=== PATIENT | female | born 2005 | race Caucasian/White ===

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

== ENCOUNTER 2023-01-29 20:57 | Emergency (ER) | payer MEDICAID, SELFPAY ==
[2023-01-29 21:12] VITALS: BP 125/77; PULSE 83; RESP 16; TEMP 36.9; O2SAT 98; BMI 27.4
--- NOTE | 2023-01-29 22:17 | W.ED.FEMALGU ---
HPI - Female Genitourinary General: Chief complaint: Urogenital-Female Stated complaint: abd pain/ 6 weeks Time Seen by Provider: 01/29/23 22:08 History of Present Illness: 17-year-old female comes in with right lower quadrant abdominal cramping. Patient had an ultrasound done at the [facility] facility today that showed a yolk sac in the uterus. Patient came in due to increased pain and discomfort in the lower abdomen. Patient appears nontoxic. 1 para 0. Patient reports no other miscarriages. Review of Systems General: Reports: 10 or more systems reviewed and unremarkable except in HPI and below : Reports: pelvic pain; Denies: vaginal bleeding Physical Exam Const: COMMON NORMALS: alert HENMT: COMMON NORMALS: normocephalic HEAD & SCALP: normocephalic Neck/C-Spine: COMMON NORMALS: full ROM Resp: COMMON NORMALS: normal respiratory effort and clear to auscultation bilaterally AUSCULTATION: clear to auscultation bilaterally Cardio: COMMON NORMALS: regular rate and regular rhythm RATE: regular rate RHYTHM: regular rhythm GI: COMMON NORMALS: non-tender Back/Pelvis: COMMON NORMALS: thoracic and lumbar spine normal to inspection Extremity: COMMON NORMALS: full ROM Neuro: SENSORIUM/ORIENTATION: Yes alert Skin: COMMON NORMALS: turgor normal GENERAL SKIN EXAM: turgor normal Course Vital Signs: Vital signs: Vital Signs Temperature 98.4 F 01/29/23 21:12 Pulse Rate 69 01/29/23 22:43 Respiratory Rate 18 01/29/23 22:43 Blood Pressure 134/79 01/29/23 22:43 Pulse Oximetry 98 01/29/23 22:43 Oxygen Delivery Me thod Room Air 01/29/23 22:43 MDM - Female Medical Decision Making Patient comes in today for complaints of right lower quadrant pain and early . Patient been seen at the [facility] facility today and was noted to have a in utero . Patient denies any nausea vomiting, or bleeding. Patient appears in mild to moderate pain to the right lower quadrant. Differential diagnosis includes but not limited to threatened , ectopic , anxiety about health. Laboratory values were unremarkable. hCG was at 16,000. Urinalysis was normal. Ultrasound noted a gestational sac in the uterus with a pole. A incidental right ovarian cyst was noted. The ovarian cyst may be patient's concern for discomfort. Recommended acetaminophen for pain and follow-up with [facility]. Patient is scheduled to be leaving the area and will seek [facility] in [place] where she is moving. Lab Data 01/29/23 22:49 01/29/23 22:49 Laboratory Results WBC 9.6 10^3/uL (4.5-13.0) 01/29/23 22:49 RBC 4.71 10^6/uL (4.1-5.3) 01/29/23 22:49 Hgb 14.2 g/dL (11.5-15.3) 01/29/23 22:49 Hct 42.0 % (37.0-47.0) 01/29/23 22:49 MCV 89.2 fl (81-99) 01/29/23 22:49 MCH 30.1 pg (28.0-34.0) 01/29/23 22:49 MCHC 33.8 g/dL (30.0-36.0) 01/29/23 22:49 RDW 12.0 % (12.1-15.1) L 01/29/23 22:49 Plt Count 263 10^3/cmm (130-400) 01/29/23 22:49 MPV 9.8 fL (7.4-10.4) 01/29/23 22:49 Neut % (Auto) 65.7 % 01/29/23 22:49 Lymph % (Auto) 28.3 % 01/29/23 22:49 [place] % (Auto) 5.2 % 01/29/23 22:49 Eos % (Auto) 0.3 % 01/29/23 22:49 Baso % (Auto) 0.3 % 01/29/23 22:49 Neut # (Auto) 6.32 10^3/uL (1.8-8.0) 01/29/23 22:49 Lymph # (Auto) 2.7 10^3/uL (1.5-6.5) 01/29/23 22:49 [place] # (Auto) 0.5 10^3/uL (0.2-0.9) 01/29/23 22:49 Eos # (Auto) 0.0 10^3/uL (0.0-0.8) 01/29/23 22:49 Baso # (Auto) 0.0 10^3/uL (0.0-0.1) 01/29/23 22:49 Nucleated RBC % (auto) 0 % 01/29/23 22:49 Nucleated RBCs # 0.0 /100WBC 01/29/23 22:49 Sodium 138 mmol/L (136-145) 01/29/23 22:49 Potassium 3.5 mmol/L (3.5-5.1) 01/29/23 22:49 Chloride 104 mmol/L (98-107) 01/29/23 22:49 Carbon Dioxide 24 mmol/L (22-29) 01/29/23 22:49 Anion Gap 13.5 (5-19) 01/29/23 22:49 BUN 9 mg/dL (6-20) 01/29/23 22:49 Creatinine 0.7 mg/dL (0.5-0.9) 01/29/23 22:49 GFR Calculation 107.8 mL/min (90-130) 01/29/23 22:49 Glucose 89 mg/dL (65-115) 01/29/23 22:49 Calculated Osmolality 284 mOsm/kg (285-295) L 01/29/23 22:49 Calcium 9.3 mg/dL (8.5-10.5) 01/29/23 22:49 Total Bilirubin 0.3 mg/dL (0.15-1.2) 01/29/23 22:49 AST 14 U/L (0-32) 01/29/23 22:49 ALT 12 U/L (0-33) 01/29/23 22:49 Alkaline Phosphatase 74 U/L (35-105) 01/29/23 22:49 Total Protein 7.2 g/dL (6.6-8.7) 01/29/23 22:49 Albumin 4.6 g/dL (3.5-5.2) 01/29/23 22:49 Globulin 2.6 g/dL (1.3-4.6) 01/29/23 22:49 HCG, Qual Positive (Negative) H 01/29/23 22:49 Ser , Semi-Qnt 79272.00 mIU/mL 01/29/23 22:49 Urine Color Straw (Yellow) 01/29/23 22:40 Urine Appearance Clear (CLEAR) 01/29/23 22:40 Urine pH 7 (5-7) 01/29/23 22:40 Ur Specific Central 1.010 (1.005-1.030) 01/29/23 22:40 Urine Protein Neg (Negative) 01/29/23 22:40 Urine Glucose (UA) Norm (Normal) 01/29/23 22:40 Urine Ketones Negative (Negative) 01/29/23 22:40 Urine Blood Neg (Negative) 01/29/23 22:40 Urine Nitrate Negative (Negative) 01/29/23 22:40 Urine Bilirubin Neg (Negative) 01/29/23 22:40 Urine Urobilinogen Norm mg/dL (Negative) 01/29/23 22:40 Ur Leukocyte Esterase Negative (Negative) 01/29/23 22:40 Discharge Plan Discharge Patient Disposition: Home Clinical Impression: Ovarian cyst during in first trimester Condition: Stable Prescriptions: No Action hydroxyzine HCl 10 mg tablet 10 mg PO TID PRN buspirone 5 mg tablet 5 mg PO BID sertraline 150 mg capsule 150 mg PO DAILY norgestimate-ethinyl estradiol [Thw-Rc-Udebgzck] 0.18/0.215/0.25 mg-25 mcg tablet 1 tab PO DAILY amoxicillin 500 mg capsule 500 mg PO BID 10 Days Qty: 20 0RF Discharge Orders: Discharge ED (Routine); Ordered 01/30/23 Ordered By: Umesh Roy Discharge Diet: Usual diet Discharge Activity: Increase activity as tolerated Patient Instructions: (ED), Ovarian Cyst (ED) Activity Restrictions/Additional Instructions: Use acetaminophen, Tylenol, as needed for pain. Drink plenty of water. Use ice or heat for further pain relief. Follow-up with primary care or [facility] for further instructions. Return to emergency department for worsening symptoms such as high fever greater than 100.4, vaginal bleeding that saturates a pad within 1 hour, uncontrolled abdominal pain or new concerns. Coding Level of Care Code ED Hearing Care Practitioner for Gustavo Plaza
[2023-01-29 22:43] VITALS: BP 134/79; PULSE 69; RESP 18; O2SAT 98
[2023-01-29 22:53] LABS: Add Urine Microscopic? NO; Charge for UA Resulting for Rev
[2023-01-29 22:55] LABS: Basophils % 0.3 %; Eosinophils % 0.3 %; Hemoglobin 14.2 g/dL (11.5-15.3); Lymphocytes # 2.7 10^3/uL (1.5-6.5); Lymphocytes % 28.3 %; Mean Corpuscular HGB Conc 33.8 g/dL (30.0-36.0); Mean Corpuscular Hemoglobin 30.1 pg (28.0-34.0); Mean Corpuscular Volume 89.2 fl (81-99); Mean Platelet Volume 9.8 fL (7.4-10.4); Monocytes # 0.5 10^3/uL (0.2-0.9); Monocytes % 5.2 %; Neutrophils # 6.32 10^3/uL (1.8-8.0); Neutrophils % 65.7 %; Nucleated Red Blood Cells % 0 %; Platelet Count 263 10^3/cmm (130-400); Red Blood Count 4.71 10^6/uL (4.1-5.3); White Blood Count 9.6 10^3/uL (4.5-13.0)
[2023-01-29 22:57] LABS: Bilirubin Urine Neg (Negative); Blood Urine Neg (Negative); Glucose Urine UA Norm (Normal); Ketones Urine Negative (Negative); Leukocyte Esterase Urine Negative (Negative); Nitrate Urine Negative (Negative); Protein Urine Neg (Negative); Urine Appearance Clear (CLEAR); Urine Color Straw (Yellow); Urobilinogen Urine Norm (Negative); pH Urine 7 (5-7)
[2023-01-29 23:07] LABS: HCG, Serum Qual Positive (Negative)
[2023-01-29 23:14] LABS: Alanine Aminotransferase 12 U/L (0-33); Albumin Level 4.6 g/dL (3.5-5.2); Alkaline Phosphatase 74 U/L (35-105); Anion Gap 13.5 (5-19); Aspartate Amino Transferase 14 U/L (0-32); Blood Urea Nitrogen 9 mg/dL (6-20); Calcium 9.3 mg/dL (8.5-10.5); Carbon Dioxide 24 mmol/L (22-29); Chloride 104 mmol/L (98-107); Creatinine Clr Calc Pharmacy 121.5483; Globulin 2.6 g/dL (1.3-4.6); Glomerular Filtration Rate 107.8 mL/min (90-130); Glucose 89 mg/dL (65-115); Osmolality Calculated 284 mOsm/kg (285-295); Potassium 3.5 mmol/L (3.5-5.1); Sodium 138 mmol/L (136-145); Total Bilirubin 0.3 mg/dL (0.15-1.2); Total Protein 7.2 g/dL (6.6-8.7)
--- NOTE | 2023-01-29 23:43 | USR_ITS ---
PROCEDURE INFORMATION: Exam: US First Trimester, Transabdominal Exam date and time: 01/30/2023 12:03 AM Age: 17 years old Clinical indication: Lmp or gestational age (in weeks): Gs measures 6 weeks; Antepartum complications; Other: Cramping; ; Additional info: Pelvic pain, R/O ectopic preg LABS AND CLINICAL REPORTS: Last menstrual period start date: 12/15/2022 Gestational age (Established): 6 w 4 d Estimated due date (Established): 09/21/2023 TECHNIQUE: Imaging protocol: Real-time transabdominal obstetrical ultrasound of the maternal pelvis and a first trimester , less than 14 weeks 0 days, with image documentation. COMPARISON: No relevant prior studies available. FINDINGS: GESTATION: Gestation: Intrauterine gestation is visualized. No pole is visualized. No yolk sac is visualized. Embryonic/ heart rate: Sought but not identified Extra-embryonic membranes/Placenta: Unremarkable. No subchorionic bleed. Amniotic fluid: Amniotic fluid and extra-amniotic fluid is normal for gestational age. BIOMETRY: Gestational age (AUA): 6 w 0 d Estimated due date (AUA): 09/25/2023 Mean sac diameter: 1 cm. EGA (MSD) is 6 w 0 d MATERNAL: Uterus: Unremarkable. Cervix: Unremarkable. Right ovary/adnexa: Right ovary measures 3.1 x 2.7 x 2.6 cm. There is a 1 cm sized simple cysts in the right ovary, possibly a corpus luteum. Left ovary/adnexa: Left ovary measures 2.7 x 1.6 x 2.3 cm and is unremarkable. Intraperitoneal space: No intraperitoneal free fluid. US/US OB <= 14 weeks fetus [id number] IMPRESSION: Early intrauterine of unknown viability. Follow-up ultrasound in 7-10 days is recommended to confirm location and viability.
== END 2023-01-30 00:58 | disposition home or self-care (01) ==
PROVIDERS: Emergency Provider Nurse Practitioner Family
DX: O34.81 Maternal care for other abnormalities of pelvic organs, first trimester (principal); N83.201 Unspecified ovarian cyst, right side; Z3A.01 Less than 8 weeks gestation of pregnancy
CPT/HCPCS: 36415; 76801; 80053; 81003; 84702; 84703; 85025; 99284

== ENCOUNTER → 2023-04-03 10:17 | Outpatient (BNVA) | payer MEDICAID, SELFPAY | PROVIDERS: Visit Provider Nurse Practitioner | DX: J02.9 Acute pharyngitis, unspecified (principal) | CPT/HCPCS: 87880 ==

== ENCOUNTER 2023-07-18 17:55 | Outpatient (CLI) | payer MEDICAID, SELFPAY ==
[2023-07-18] VITALS (22 sets, daily range): BP systolic 126–141; BP diastolic 62–73; PULSE 63–103; RESP 16; O2SAT 98–100; BMI 28.3
[2023-07-18] MEDS: terbutaline 1 mg/mL INJ 0.25 MG SUBCUT (18:52)
[2023-07-18 19:43] LABS: Specific Gravity, Urine 1.025 (1.005-1.030); Urine Appearance Hazy (CLEAR); Urine Color Yellow (Yellow); pH Urine 7 (5-7)
[2023-07-18 19:44] LABS: Bilirubin Urine Neg (Negative); Blood Urine 2+ (Negative); Glucose Urine UA Norm (Normal); Ketones Urine Negative (Negative); Leukocyte Esterase Urine 2+ (Negative); Nitrate Urine Positive (Negative); Protein Urine 1+ (Negative); Urobilinogen Urine Norm (Negative)
[2023-07-18 19:45] LABS: Add Urine Culture? Yes; Bacteria Urine 2+ /hpf; Mucus Urine 1+ /hpf; WBC Urine 25-40 /hpf (0-5)
[2023-07-18] MEDS: nitrofurantoin SR (BID) 100 mg Capsule PO (20:11)
== END 2023-07-18 20:13 | disposition home or self-care (01) ==
LOC: OPOB 18:01 → OBGYN 18:02
PROVIDERS: PCP Family Medicine Adult Medicine; Visit Provider Family Medicine
DX: O26.899 Other specified pregnancy related conditions, unspecified trimester (principal); Z3A.00 Weeks of gestation of pregnancy not specified; R10.9 Unspecified abdominal pain
CPT/HCPCS: 36415; 59025; 81001; 87086; 96372; 99211; J3105

== ENCOUNTER 2023-08-08 13:27 | Outpatient (CLI) | payer MEDICAID, SELFPAY ==
[2023-08-08 13:42] VITALS: BP 131/73; PULSE 90
[2023-08-08 13:57] VITALS: BP 128/70; PULSE 82
[2023-08-08 14:00] VITALS: BMI 29.2
[2023-08-08 14:12] VITALS: BP 128/71; PULSE 85
[2023-08-08 14:27] VITALS: BP 136/76; PULSE 75
[2023-08-08 14:42] VITALS: BP 119/72; PULSE 74
[2023-08-08 14:57] VITALS: BP 118/69; PULSE 69
== END 2023-08-08 15:14 | disposition home or self-care (01) ==
LOC: OPOB 13:32 → OBGYN 13:33
PROVIDERS: PCP Family Medicine Adult Medicine; Visit Provider Family Medicine
DX: O26.899 Other specified pregnancy related conditions, unspecified trimester (principal); Z3A.00 Weeks of gestation of pregnancy not specified; R10.9 Unspecified abdominal pain
CPT/HCPCS: 59025; 99211

== ENCOUNTER 2023-09-02 15:59 | Outpatient (CLI) | payer MEDICAID, SELFPAY ==
[2023-09-02 15:59] VITALS: BMI 30.8
[2023-09-02 16:26] VITALS: BP 125/67; PULSE 73
[2023-09-02 16:46] VITALS: BP 105/54; PULSE 84
[2023-09-02 16:48] LABS: Basophils % 0.1 %; Eosinophils % 0.4 %; Hematocrit 33.1 % (36-47); Lymphocytes # 1.8 10^3/uL (1.5-6.5); Lymphocytes % 20.2 %; Mean Corpuscular HGB Conc 32.9 g/dL (30-55); Mean Corpuscular Hemoglobin 29.9 pg (27-33); Mean Corpuscular Volume 90.7 fl (85-98); Mean Platelet Volume 10.4 fL (7.4-10.4); Monocytes # 0.5 10^3/uL (0.2-0.9); Monocytes % 5.5 %; Neutrophils # 6.68 10^3/uL (1.8-8.0); Neutrophils % 73.4 %; Nucleated Red Blood Cells % 0 %; Platelet Count 236 10^3/cmm (157-399); Red Blood Count 3.65 10^6/uL (3.85-5.65); White Blood Count 9.11 10^3/uL (4.5-13.0)
[2023-09-02 16:57] LABS: Urine Appearance Cloudy (CLEAR); Urine Color Yellow (Yellow)
[2023-09-02 16:58] LABS: Add Urine Microscopic? YES; Bilirubin Urine Neg (Negative); Blood Urine Neg (Negative); Glucose Urine UA Norm (Normal); Ketones Urine Negative (Negative); Leukocyte Esterase Urine 2+ (Negative); Nitrate Urine Negative (Negative); Protein Urine Neg (Negative); Urobilinogen Urine Norm (Negative); pH Urine 6 (5-7)
[2023-09-02 17:07] VITALS: BP 116/69; PULSE 83
[2023-09-02 17:24] LABS: Add Urine Culture? No; Amorphous Sediment Urine 2+ /hpf; Bacteria Urine 1+ /hpf
[2023-09-02 17:26] LABS: Alanine Aminotransferase 11 U/L (0-33); Albumin Level 3.4 g/dL (3.5-5.2); Alkaline Phosphatase 170 U/L (35-105); Anion Gap 14.5 (5-19); Aspartate Amino Transferase 15 U/L (0-32); Blood Urea Nitrogen 4 mg/dL (6-20); Calcium 8.8 mg/dL (8.5-10.5); Carbon Dioxide 21 mmol/L (22-29); Chloride 106 mmol/L (98-107); Creatinine Clr Calc Pharmacy 178.5283; Globulin 2.5 g/dL (1.3-4.6); Glomerular Filtration Rate 157.3 mL/min (90-130); Glucose 90 mg/dL (65-115); Osmolality Calculated 282 mOsm/kg (285-295); Potassium 3.5 mmol/L (3.5-5.1); Sodium 138 mmol/L (136-145); Total Bilirubin 0.2 mg/dL (0.15-1.2); Total Protein 5.9 g/dL (6.6-8.7); Uric Acid 2.9 mg/dL (2.4-5.7)
[2023-09-02 17:27] VITALS: BP 110/53; PULSE 69
[2023-09-02 17:31] LABS: Urine Creatinine 98 mg/dL (28-217); Urine Protein Random 10 mg/dL
[2023-09-02 17:47] VITALS: BP 117/60; PULSE 76
[2023-09-02 17:53] VITALS: BP 117/60; PULSE 76
== END 2023-09-02 17:53 | disposition home or self-care (01) ==
LOC: OPOB 16:01 → OBGYN 16:02
PROVIDERS: PCP Family Medicine Adult Medicine; Visit Provider Family Medicine
DX: O16.9 Unspecified maternal hypertension, unspecified trimester (principal); Z3A.00 Weeks of gestation of pregnancy not specified
CPT/HCPCS: 36415; 59025; 80053; 81001; 82570; 84156; 84550; 85025; 99211

== ENCOUNTER 2023-09-15 21:04 | Inpatient (IN) | payer MEDICAID, SELFPAY ==
[2023-09-15 20:54] VITALS: BMI 31.2
[2023-09-15 21:10] VITALS: BP 131/87; PULSE 84
[2023-09-15 21:22] VITALS: TEMP 36.4
[2023-09-15] MEDS: miSOPROStol 100 mcg tablet 25 MCG VAGINAL (22:00)
[2023-09-15 22:06] VITALS: BP 134/60; PULSE 68
[2023-09-15 22:16] LABS: Basophils % 0.2 %; Eosinophils % 0.3 %; Hematocrit 34.3 % (36-47); Lymphocytes % 17.8 %; Mean Corpuscular HGB Conc 33.2 g/dL (30-55); Mean Corpuscular Hemoglobin 30.2 pg (27-33); Mean Platelet Volume 10.6 fL (7.4-10.4); Monocytes # 0.6 10^3/uL (0.2-0.9); Monocytes % 5.4 %; Neutrophils % 75.7 %; Nucleated Red Blood Cells % 0 %; Platelet Count 235 10^3/cmm (157-399); Red Blood Count 3.77 10^6/uL (3.85-5.65); Red Cell Distribution Width 15.2 % (12.1-15.1); White Blood Count 11.35 10^3/uL (4.5-13.0)
[2023-09-15 22:26] VITALS: BP 130/64; PULSE 76
[2023-09-16] VITALS (67 sets, daily range): BP systolic 99–170; BP diastolic 55–92; PULSE 32–100; RESP 17; TEMP 36.2; O2SAT 91–97
[2023-09-16] MEDS: miSOPROStol 100 mcg tablet 25 MCG VAGINAL ×2 (02:32→09:10)
[2023-09-16] MEDS: oxytocin 30 UNIT/500 ML BAG IV (14:30)
[2023-09-16] MEDS: dextrose 5%-lactated ringers 1,000 ML 125 ML IV ×2 (14:35→23:32)
[2023-09-16] MEDS: lactated ringers 1,000 ML 999 ML IV ×2 (19:35→20:36)
[2023-09-16] MEDS: hyDROXYzine 25 mg Capsule 50 MG PO (20:07)
[2023-09-16] MEDS: ROPivacaine syringe 100 MG/50 ML SYRINGE 10 MG EPIDURAL (20:47)
--- NOTE | 2023-09-16 20:50 | P.ANESUD_ITS ---
Pre-Anesthetic Update Pre-Anesthetic Assessment: Date of Surgery/Procedure: 09/16/23 Preop Melinda gnosis: IUP Proposed Procedure: Labor epidural Any changes to Pre-Anesthetic Assessment?: No Last Intake: 09/16/23 @1900 Labs Last 48hrs: Short CBC 09/15/23 Range/Units 21:12 WBC 11.35 (4.5-13.0) 10^3/ uL Hgb 11.40 L (12.4-14.8) g/dL Hct 34.3 L (36-47) % MCV 91.0 (85-98) fl Plt Count 235 (157-399) 10^3/c mm Neut % (Auto) 75.7 % Neut # (Auto) 8.60 H (1.8-8.0) 10^3/u L Blood Bank 09/15/23 21:12 Blood Type A Positive Rho(D) Type Rh positive Antibody Screen Negative Vitals: Temperature 97.2 F L 09/16/23 05:59 Pulse Rate 69 09/16/23 20:47 Respiratory Effort Spontaneous, Non- Labored 09/15/23 20:54 Respiratory Depth Normal 09/15/23 20:54 Respiratory Patter n Normal 09/15/23 20:54 Blood Pressure 135/67 09/16/23 20:47 Pulse Oximetry 96 09/16/23 20:44 Oxygen Delivery Me thod Room Air 09/15/23 20:54 Exam: Pre-Anes Outpt Exam: alert, oriented x 3, clear to auscultation bilaterally and regular rate & rhythm Cardiac Studies: No Data to Display Anesthesia Procedures Epidural: Time Out Performed: Yes Consents Signed: Procedure Consent Consent: requested by attending/covering physician, from patient, risks and benefits reviewed and patient agrees to proceed Lumbar Level: L3-L4 Epidural position: sitting Epidural procedure: sterile prep of area, 1% lidocaine to numb the area, 18 g needle, negative for paresthesia passed, neg for paresthesia, test dose given, 1.5% xylocaine 1:200k epi, 0.2% Ropivacaine bolus ml (5), placed PCEA, no systemic response, sterile dressing applied, L.U.D. no apparent complications and 0.2% Ropiavacaine @ mls/hr (10)
[2023-09-17] VITALS (52 sets, daily range): BP systolic 105–158; BP diastolic 53–95; PULSE 51–142; RESP 15–16; TEMP 35.9–37
[2023-09-17] MEDS: ROPivacaine syringe 100 MG/50 ML SYRINGE 10 MG EPIDURAL ×2 (01:03→05:41)
[2023-09-17] MEDS: calcium carbonate 500 mg Chew Tablet 1000 MG PO (04:44)
[2023-09-17] MEDS: dextrose 5%-lactated ringers 1,000 ML 125 ML IV ×2 (07:30→15:02)
[2023-09-17] MEDS: ROPivacaine syringe 100 MG/50 ML SYRINGE 8 MG EPIDURAL ×2 (10:53→14:54)
[2023-09-17] MEDS: ondansetron 2 mg/ML SDV 2 mL 4 MG IVP (12:23)
[2023-09-17] MEDS: metoclopramide 5 mg/mL SDV 2 mL 10 MG IV (14:53)
[2023-09-17] MEDS: oxytocin 30 UNIT/500 ML BAG 16 UNIT IV (15:01)
--- NOTE | 2023-09-17 16:33 | P.HP_ITS ---
Providers/Chief Complaint 2 Admitting Physician: Kailyn Lainez MD Primary Care Provider: Toni Boswell MD Chief Complaint: IOL History of Present Illness Annalisa Kruse is a 18 year old female G1, P0 at 39 weeks 3 days gestation who is here for an elective induction. The patient has routine care at [facility]. There have been no complications during the . Review of Systems 2 Narrative: The patient denies any fever chills nausea or vomiting, she denies any contractions vaginal bleeding or loss of fluid. She has good movement. Medications/Allergies Home Medications Medication Instructions Recorded Confirmed Last Taken Type vitamins no.163-iron 1 tab PO DAILY 05/30/23 09/15/23 09/15/23 History bis-gly 20 mg-folate no.10 1 mg tablet (PNV Tabs 20-1) hydroxyzine HCl 50 mg tablet 50 mg PO 1XD PRN Anxiety 09/16/23 09/16/23 Unknown History Allergies Allergy/AdvReac Type Severity Reaction Status Date / Time No Known Allergies Allergy Verified 09/15/23 21:17 PFSH Acute 2 PFSH: Medical History (Updated 09/17/23 @ 16:35 by Kailyn Lainez MD) IUD Ovarian cyst during in first trimester Surgical History No pertinent past surgical history Family History Father No problems noted. Mother Hypertension Social History Smoking and tobacco/nicotine status: never used tobacco/nicotine Alcohol intake: never Substance/Drug Use: never Female Reproductive History: : 1 Vitals/I&O/Wt Last Vital Signs Temp 97.5 F L 09/17/23 15:23 Pulse 60 09/17/23 16:14 Resp 16 09/17/23 08:51 BP 134/74 09/17/23 16:14 Pulse Ox 94 09/16/23 21:10 O2 Del Method Room Air 09/15/23 20:54 09/17/23 09/17/23 09/17/23 06:59 14:59 22:59 Intake Total 313.333 / 2348.833 1163.166 / 0253.593 0457.934 / 2177.100 Output Total 1400 / 1600 1100 / 1100 Balance -1086.667 / 748.833 63.166 / 63.166 1013.934 / 1077.100 Weight last 48 hrs Weight 82.554 kg Physical Exam 2 Narrative: Alert and oriented, heart regular rate and rhythm, lungs clear to auscultation bilaterally, abdomen is gravid and nontender, extremities have 1+ edema but no calf tenderness Urinary Catheter Management: Novak: Cath Placed During This Visit: yes Reason for Continuing Indwelling Catheter: Required Immobilization for Trauma or Surgery or Anesthesia Urinary Catheter Date of Insertion: 09/16/23 Urinary Catheter Time of Insertion: 21:30 Data 09/15/23 21:12 A&P Assessment and plan (1) with 39 completed weeks gestation: The patient's cervix is not favorable so she will be started with Cytotec. Expectant management of labor and delivery Attestations 2 Medical Necessity Statement*: Routine induction with expectant management of labor and delivery Coding Level of Care Code Acute Code for Chg Fwd Diagnoses with 39 completed weeks gestation Z3A.39
--- NOTE | 2023-09-17 19:22 | P.PCNOB_ITS ---
Delivery Note: Date of delivery: September 17, 2023 Pre-Delivery Course: The patient had routine care at [facility]. labs: Blood type a positive antibody negative, hepatitis B nonreactive, hepatitis C nonreactive, HIV nonreactive, rubella immune, GC chlamydia negative, RPR nonreactive, UDS negative, Q low risk, she passed her glucose tolerance test, she was GBS negative. Delivery: This is a 18-year-old G1, P0 at 39 weeks 4 days gestation who was admitted for induction. Her cervix was not favorable and she received Cytotec x 3. She was then started on Pitocin. She received an epidural for pain management. She did not make very much cervical change until she underwent artificial rupture of membranes with clear fluid. At this point she began active labor. Her labor progressed rather well and she pushed for approximately 45 minutes before having a normal spontaneous vaginal delivery of a viable male infant weight 3070 g, 6 pounds 12 ounces, Apgars 5 and 9 over an intact perineum. The was suctioned at delivery and placed on the mother's chest. The cord was clamped and cut. He was rather stunned and spitting up meconium tinged fluid so he was taken directly to the warmer. The placenta delivered grossly intact and normal to inspection. There was a very small first-degree laceration that did not require any sutures. Estimated blood loss 200 mL Coding Level of Care Code Acute Code for Chg Fwd
[2023-09-18 00:27] VITALS: BP 137/78; PULSE 71; RESP 16
[2023-09-18 02:45] VITALS: BP 147/102; PULSE 94; RESP 16; TEMP 36.9
[2023-09-18 04:45] VITALS: BP 110/62; PULSE 73; RESP 16; TEMP 36.7; O2SAT 96
[2023-09-18 07:26] LABS: Hematocrit 33.8 % (36-47); Mean Corpuscular HGB Conc 33.7 g/dL (30-55); Mean Corpuscular Hemoglobin 30.8 pg (27-33); Mean Corpuscular Volume 91.4 fl (85-98); Mean Platelet Volume 10.8 fL (7.4-10.4); Platelet Count 197 10^3/cmm (157-399); Red Cell Distribution Width 15.5 % (12.1-15.1)
--- NOTE | 2023-09-18 08:01 | P.PN_ITS ---
Subjective 2 Subjective: day 0-1 Doing well. Average vaginal bleeding. Ambulating and tolerating a regular diet. Vitals/I&O/Wt Last Vital Signs Temp 98.1 F 09/18/23 04:45 Pulse 73 09/18/23 04:45 Resp 16 09/18/23 04:45 BP 110/62 09/18/23 04:45 Pulse Ox 96 09/18/23 04:45 O2 Del Method Room Air 09/18/23 04:45 09/17/23 09/18/23 09/18/23 22:59 06:59 14:59 Intake Total 1477.934 / 2641.100 Output Total 200 / 1300 Balance 1277.934 / 1341.100 Physical Exam 2 Narrative: Resting in bed, easily arousable, heart regular rate and rhythm, lungs clear to auscultation bilaterally, abdomen is soft and nontender, fundus is firm, extremities have 1+ edema but no calf tenderness Urinary Catheter Management: Novak: Cath Placed During This Visit: yes, but has since been removed by the nurse Reason for Continuing Indwelling Catheter: Decision to DC Catheter Urinary Catheter Date of Insertion: 09/16/23 Urinary Catheter Time of Insertion: 21:30 Date Urinary Catheter Removed: 09/17/23 Time Urinary Catheter Discontinued: 17:35 Data 09/18/23 06:20 A&P Assessment and plan (1) (normal spontaneous vaginal delivery): Routine care Attestations 2 Medical Necessity Statement*: Routine care Coding Level of Care Code Acute Code for Chg Fwd Diagnoses (normal spontaneous vaginal delivery) O80
[2023-09-18] MEDS: PRENATAL VIT NO.130/IRON/FOLIC 1 EACH TABLET PO (08:34)
[2023-09-18] MEDS: ibuprofen 800 mg tablet PO ×3 (08:34→21:27)
[2023-09-18] MEDS: docusate sodium 100 mg Capsule PO ×2 (08:34→21:27)
[2023-09-18 08:40] VITALS: BP 127/85; PULSE 56; RESP 16; TEMP 36.6; O2SAT 98
--- NOTE | 2023-09-18 13:59 | ANE.PACU2 ---
Inpatient post-anesthesia follow up: Airway intact: Yes Vital signs: Temperature 97.8 F Pulse Rate 56 Respiratory Rate 16 Blood Pressure 127/85 Pulse Oximetry 98 Oxygen Delivery Me thod Room Air Oxygen Flow Rate Fraction of Inspir ed Oxygen Hydration adequate: Yes Nausea and vomiting: No Pain level: 1 Mental status: Baseline Epidural Start/End: Epidural Start Date: 09/16/23 Epidural Start Time: 20:20 Epidural End Date: 09/17/23 Epidural End Time: 19:20
[2023-09-18 15:35] VITALS: BP 131/75; PULSE 74; RESP 18; TEMP 36.6; O2SAT 94
[2023-09-18 22:27] VITALS: BP 122/77; PULSE 62; RESP 17; TEMP 36.8; O2SAT 97
[2023-09-19 04:00] VITALS: BP 123/82; PULSE 67; RESP 16; TEMP 36.8
[2023-09-19 09:00] VITALS: BP 128/75; PULSE 62; RESP 18; TEMP 36.7
[2023-09-19] MEDS: PRENATAL VIT NO.130/IRON/FOLIC 1 EACH TABLET PO (09:02)
[2023-09-19] MEDS: docusate sodium 100 mg Capsule PO (09:02)
[2023-09-19] MEDS: ibuprofen 800 mg tablet PO ×2 (09:02→14:33)
--- NOTE | 2023-09-19 12:39 | PM.DCS ---
Discharge Providers Date of Admission: 09/16/23 20:00 Date of Discharge: September 19, 2023 Attending Provider at Admission: Kailyn Lainez MD Attending Provider at Discharge: Kailyn Lainez MD Primary Care Provider: Toni Boswell MD Diagnoses at Discharge Discharge Diagnosis (1) (normal spontaneous vaginal delivery): Status: Acute Reason for Visit Reason for Visit: IOL Hospital Course Hospital Course This is a 18-year-old G1 now P1 who was admitted for induction. Since her cervix was not favorable it was a rather long induction. Once her water was broken and we actually had her in active labor she progressed rather well she had a normal spontaneous vaginal delivery of a viable male infant. She has done well and is ambulating, tolerating a regular diet and has decreased vaginal bleeding Physical Exam Narrative: Alert and oriented sitting on bedside couch, heart regular rate and rhythm, lungs clear to auscultation bilaterally, abdomen is soft and nontender, fundus is firm, extremities have 2+ edema but no calf tenderness Urinary Catheter Management: Novak: Cath Placed During This Visit: yes, but has since been removed by the nurse Reason for Continuing Indwelling Catheter: Decision to DC Catheter Urinary Catheter Date of Insertion: 09/16/23 Urinary Catheter Time of Insertion: 21:30 Date Urinary Catheter Removed: 09/17/23 Time Urinary Catheter Discontinued: 17:35 Discharge Data Studies Completed and Pending Laboratory Results WBC 17.40 10^3/uL (4.5-13.0) H 09/18/23 06:20 RBC 3.70 10^6/uL (3.85-5.65) L 09/18/23 06:20 Hgb 11.40 g/dL (12.4-14.8) L 09/18/23 06:20 Hct 33.8 % (36-47) L 09/18/23 06:20 MCV 91.4 fl (85-98) 09/18/23 06:20 MCH 30.8 pg (27-33) 09/18/23 06:20 MCHC 33.7 g/dL (30-55) 09/18/23 06:20 RDW 15.5 % (12.1-15.1) H 09/18/23 06:20 Plt Count 197 10^3/cmm (157-399) 09/18/23 06:20 MPV 10.8 fL (7.4-10.4) H 09/18/23 06:20 Neut % (Auto) 75.7 % 09/15/23 21:12 Lymph % (Auto) 17.8 % 09/15/23 21:12 [place] % (Auto) 5.4 % 09/15/23 21:12 Eos % (Auto) 0.3 % 09/15/23 21:12 Baso % (Auto) 0.2 % 09/15/23 21:12 Neut # (Auto) 8.60 10^3/uL (1.8-8.0) H 09/15/23 21:12 Lymph # (Auto) 2.0 10^3/uL (1.5-6.5) 09/15/23 21:12 [place] # (Auto) 0.6 10^3/uL (0.2-0.9) 09/15/23 21:12 Eos # (Auto) 0.0 10^3/uL (0.0-0.8) 09/15/23 21:12 Baso # (Auto) 0.0 10^3/uL (0.0-0.1) 09/15/23 21:12 Nucleated RBC % (auto) 0 % 09/15/23 21:12 Nucleated RBCs # 0.0 /100WBC 09/15/23 21:12 Blood Type A Positive 09/15/23 21:12 Rho(D) Type Rh positive 09/15/23 21:12 Antibody Screen Negative 09/15/23 21:12 Vitals Last Vital Signs Temp 98.1 F 09/19/23 09:00 Pulse 62 09/19/23 09:00 Resp 18 09/19/23 09:00 BP 128/75 09/19/23 09:00 Pulse Ox 97 09/18/23 22:27 O2 Del Method Room Air 09/19/23 04:00 Discharge Plan Discharge Patient Disposition: Home Condition: Stable Prescriptions: Continued PNV Tabs 20-1 20 mg iron- 1 mg tablet 1 tab PO DAILY hydroxyzine HCl 50 mg tablet 50 mg PO 1XD PRN (Reason: Anxiety) Discharge Orders: Discharge Order (Routine); Ordered 09/19/23 Ordered By: Kailyn Lainez Referrals: Kailyn Lainez MD [Physician] - 1 month Discharge Diet: Usual diet Discharge Activity: Limit activity as instructed Patient Instructions: Depression (DC), Opioid Safety (DC), Preeclampsia and Eclampsia After Delivery (GEN), Vaginal Delivery (GEN), Hemorrhage (DC), OB Discharge Report, OB Food/Drug Interaction Guide, OB Care at Home, Opioid Safety, Abnormal Bleeding Activity Restrictions/Additional Instructions: Nothing per vagina for 6 weeks Discharge Attestations Time Spent in Discharge Care*: less than 30 min Quality Metrics Clinical Quality Measures [ No reported AMI, CVA or VTE this stay] Coding Level of Care Code Acute Code for Chg Fwd Diagnoses (normal spontaneous vaginal delivery) O80
[2023-09-19 14:30] VITALS: BP 128/66; PULSE 62; RESP 16; TEMP 36.8
== END 2023-09-19 14:55 | disposition home or self-care (01) | DRG 807 ==
LOC: OPOB 09-16 04:27 → OBGYN 09-16 04:29
PROVIDERS: Admitting Provider Family Medicine; PCP Family Medicine Adult Medicine; Visit Provider Family Medicine
DX: O80 Encounter for full-term uncomplicated delivery (principal); Z37.0 Single live birth; Z3A.39 39 weeks gestation of pregnancy
CPT/HCPCS: 36415; 51702; 59025; 59409; 85025; 85027; 86850; 86900; 96374; 99211; G0378; J2405; J2590; J2765; J2795; J7120; J7121

== ENCOUNTER 2024-03-21 10:22 | Emergency (ER) | payer MEDICAID, SELFPAY ==
[2024-03-21] VITALS (9 sets, daily range): BP systolic 126–162; BP diastolic 61–89; PULSE 96–110; RESP 16; O2SAT 92–98; BMI 30.9
--- NOTE | 2024-03-21 10:32 | XRR_ITS ---
PROCEDURE INFORMATION: Exam: XR Chest Exam date and time: 03/21/2024 10:40 AM Age: 18 years old Clinical indication: Shortness of breath TECHNIQUE: Imaging protocol: Radiologic exam of the chest. Views: 1 view. COMPARISON: No relevant prior studies available. FINDINGS: Lungs: Patchy opacity left mid/lower lung. Lungs are otherwise clear. Pleural spaces: Unremarkable. No pleural effusion. No pneumothorax. Heart/Mediastinum: Unremarkable. No cardiomegaly. Bones/joints: Unremarkable. XR/XR chest 1V portable [id number] IMPRESSION: Patchy opacity left mid/lower lung. Suspicious for infection.
--- NOTE | 2024-03-21 10:32 | ECG_ITS ---
[facility] Test Date: 2024-03-21 Pat Name: Annalisa Kruse Department: Room: Gender: Female Hose Mender: : 2005 Requested By: Maura Forrester Order Number: [id number] Patel MD: Julian Velazquez M.D. Measurements Intervals [place] Rate: 107 P: 81 UT: 130 QRS: 67 QRSD: 81 T: 166 QT: 319 QTc: 427 Interpretive Statements SINUS TACHYCARDIA LOW QRS VOLTAGE IN EXTREMITY LEADS [QRS DEFLECTION < 0.5 mV IN LIMB LEADS] NONSPECIFIC ST & T-WAVE ABNORMALITY INTERPRETATION BASED ON A DEFAULT AGE OF 40 YEARS No previous ECG available for comparison Electronically Signed On 03-21-2024 22:38:12 CDT by Julian Velazquez M.D. [email or web address]
--- NOTE | 2024-03-21 10:36 | W.ED.URI ---
HPI - URI/Sore Throat General: Chief Complaint: Upper Respiratory Infection Stated Complaint: coughing, CP, dizzy, headache Time Seen by Provider: 03/21/24 10:26 History of Present Illness: 18-year-old female who presents emergency room with cough, shortness of breath and wheeze. This been going on for about a week. She has some inspiratory pleuritic chest pain. She has had fevers at home. Says she almost passed out from a coughing fit at home. No nausea or vomiting. No abdominal pain. No altered mental status. No focal motor deficits. Related Data Home Medications Medication Instructions Recorded Confirmed vitamins no.163-iron 1 tab PO DAILY 05/30/23 09/15/23 bis-gly 20 mg-folate no.10 1 mg tablet (PNV Tabs 20-1) hydroxyzine HCl 50 mg tablet 50 mg PO 1XD PRN Anxiety 09/16/23 09/16/23 Previous Rx's Medication Instructions Recorded albuterol sulfate 90 mcg/actuation 2 inh inhalation Q4H PRN shortness 03/21/24 aerosol inhaler of breath or wheezing #6.7 grams benzonatate 200 mg capsule 200 mg PO TID PRN cough #30 caps 03/21/24 dexamethasone 6 mg tablet 6 mg PO DAILY 5 days #5 tabs 03/21/24 levofloxacin 750 mg tablet 750 mg PO DAILY 10 days #7 tabs 03/21/24 Allergies Allergy/AdvReac Type Severity Reaction Status Date / Time No Known Allergies Allergy Verified 09/15/23 21:17 Review of Systems Narrative: Constitutional symptoms: Negative except as documented in HPI. Skin symptoms: Negative except as documented in HPI. Eye symptoms: Negative except as documented in HPI. ENMT symptoms: Negative except as documented in HPI. Respiratory symptoms: Negative except as documented in HPI. Cardiovascular symptoms: Negative except as documented in HPI. Gastrointestinal symptoms: Negative except as documented in HPI. Genitourinary symptoms: Negative except as documented in HPI. Musculoskeletal symptoms: Negative except as documented in HPI. Neurologic symptoms: Negative except as documented in HPI. Psychiatric symptoms: Negative except as documented in HPI. Endocrine symptoms: Negative except as documented in HPI. [facility] ED PFSH: Medical History (Updated 03/21/24 @ 11:39 by Maura Butler MD) IUD Ovarian cyst during in first trimester Surgical History No pertinent past surgical history Family History Father No problems noted. Mother Hypertension Social History Smoking and tobacco/nicotine status: never used tobacco/nicotine Alcohol intake: never Substance/Drug Use: never Female Reproductive History: Date of last menstrual period: 03/14/24 Physical Exam Narrative: EXAM NARRATIVE: General: Alert, no acute distress. Skin: Warm, dry. Head: Normocephalic, atraumatic. Neck: Supple, trachea midline. Eye: Extraocular movements are intact. Ears, nose, mouth and throat: Oral mucosa moist. Cardiovascular: Regular rate and rhythm, Normal peripheral perfusion. Respiratory: some expiratory wheeze, frequent cough., breath sounds are equal, Symmetrical chest wall expansion. Gastrointestinal: Soft, Nontender, Non distended, Normal bowel sounds. Musculoskeletal: Normal ROM, no deformity. Neurological: Alert and oriented to person, place, time, and situation, No focal neurological deficit observed. Psychiatric: Cooperative, appropriate mood & affect. Course Vital Signs: Vital signs: Vital Signs Pulse Rate 108 H 03/21/24 10:59 Respiratory Rate 16 03/21/24 10:55 Blood Pressure 149/89 03/21/24 10:36 Pulse Oximetry 93 03/21/24 10:55 Oxygen Delivery Me thod Room Air 03/21/24 10:55 MDM - URI/Sore Throat Medical Decision Making Differential diagnosis for patient with shortness of breath includes but is not limited to and based on the above HPI, review of systems and physical exam: Pneumonia. Bronchitis. Asthma or COPD with acute exacerbation. Acute coronary syndrome / MS. Pulmonary embolism. Anxiety. Congestive heart failure. Viral infections including influenza and Covid-19. Atrial fibrillation. Anxiety. Pleural effusion. Pneumothorax. Orders placed to evaluate differential diagnosis based on the above differential, HPI and physical exam Chest x-ray: There is a dense consolidated infiltrate in the left lower lobe. This was reviewed and interpreted by myself the emergency room physician. I also reviewed the radiology report. EKG: Time 1029. Rate 107. Sinus tachycardia, No ST-T changes, no ectopy, normal FL & QRS intervals, This was reviewed and interpreted by myself the ER physician at 1032. Lab Review: Laboratory results were reviewed and interpreted by myself the emergency room physician. No leukocytosis. Lactic acid is not elevated. She is slightly tachycardic but blood pressure is normal. I do not believe she is septic at this time. He was given some fluids for the tachycardia. I reviewed the patient's medical record. Reexamination: Patient remained stable. She is not requiring any oxygen. No altered mental status. No focal motor deficits. Assessment and plan: Community-acquired bacterial pneumonia Dehydration ? IV Levaquin, IV normal saline bolus, IV Solu-Medrol, breathing treatment and p.o. codeine - Discharged home - Discussed plan with patient. Answered any questions. - Evaluation and treatment of this problem were appropriate in the emergency setting. Lab Data 03/21/24 10:42 03/21/24 10:42 Radiology Impressions Chest X-Ray 03/21/24 10:32 IMPRESSION: Patchy opacity left mid/lower lung. Suspicious for infection. Laboratory Results WBC 6.88 10^3/uL (4.5-13.0) 03/21/24 10:42 RBC 4.43 10^6/uL (3.85-5.65) 03/21/24 10:42 Hgb 13.10 g/dL (12.4-14.8) 03/21/24 10:42 Hct 39.8 % (36-47) 03/21/24 10:42 MCV 89.8 fl (85-98) 03/21/24 10:42 MCH 29.6 pg (27-33) 03/21/24 10:42 MCHC 32.9 g/dL (30-55) 03/21/24 10:42 RDW 12.9 % (12.1-15.1) 03/21/24 10:42 Plt Count 241 10^3/cmm (157-399) 03/21/24 10:42 MPV 9.5 fL (7.4-10.4) 03/21/24 10:42 Neut % (Auto) 68.4 % 03/21/24 10:42 Lymph % (Auto) 21.9 % 03/21/24 10:42 [place] % (Auto) 7.0 % 03/21/24 10:42 Eos % (Auto) 2.3 % 03/21/24 10:42 Baso % (Auto) 0.1 % 03/21/24 10:42 Neut # (Auto) 4.70 10^3/uL (1.8-8.0) 03/21/24 10:42 Lymph # (Auto) 1.5 10^3/uL (1.5-6.5) 03/21/24 10:42 [place] # (Auto) 0.5 10^3/uL (0.2-0.9) 03/21/24 10:42 Eos # (Auto) 0.2 10^3/uL (0.0-0.8) 03/21/24 10:42 Baso # (Auto) 0.0 10^3/uL (0.0-0.1) 03/21/24 10:42 Nucleated RBC % (auto) 0 % 03/21/24 10:42 Nucleated RBCs # 0.0 /100WBC 03/21/24 10:42 Sodium 137 mmol/L (136-145) 03/21/24 10:42 Potassium 3.6 mmol/L (3.5-5.1) 03/21/24 10:42 Chloride 103 mmol/L (98-107) 03/21/24 10:42 Carbon Dioxide 22 mmol/L (22-29) 03/21/24 10:42 Anion Gap 15.6 (5-19) 03/21/24 10:42 BUN 11 mg/dL (6-20) 03/21/24 10:42 Creatinine 1.0 mg/dL (0.5-0.9) H 03/21/24 10:42 GFR Calculation 70.7 mL/min (90-130) L 03/21/24 10:42 Glucose 117 mg/dL (65-115) H 03/21/24 10:42 Calculated Osmolality 284 mOsm/kg (285-295) L 03/21/24 10:42 Lactic Acid 2.2 mmol/L (0.5-2.2) 03/21/24 10:42 Calcium 8.9 mg/dL (8.5-10.5) 03/21/24 10:42 Total Bilirubin 0.4 mg/dL (0.15-1.2) 03/21/24 10:42 AST 31 U/L (0-32) 03/21/24 10:42 ALT 56 U/L (0-33) H 03/21/24 10:42 Alkaline Phosphatase 103 U/L (35-105) 03/21/24 10:42 C-Reactive Protein 22.0 mg/L (0.0-4.9) H 03/21/24 10:42 Total Protein 7.0 g/dL (6.6-8.7) 03/21/24 10:42 Albumin 3.9 g/dL (3.5-5.2) 03/21/24 10:42 Globulin 3.1 g/dL (1.3-4.6) 03/21/24 10:42 Procalcitonin 0.23 ng/mL (0-0.5) 03/21/24 10:42 Coronavirus (PCR) Negative (Negative) 03/21/24 10:37 Influenza A (PCR) Negative (Negative) 03/21/24 10:37 Influenza Type B (PCR) Negative (Negative) 03/21/24 10:37 RSV (PCR) Negative (Negative) 03/21/24 10:37 All radiology interpretation(s) finalized by discharge Discharge Plan Discharge Patient Disposition: Home Clinical Impression: Community acquired bacterial pneumonia Condition: Stable Prescriptions: New benzonatate 200 mg capsule 200 mg PO TID PRN (Reason: cough) Qty: 30 0RF dexamethasone 6 mg tablet 6 mg PO DAILY 5 Days Qty: 5 0RF levofloxacin 750 mg tablet 750 mg PO DAILY 10 Days Qty: 7 0RF albuterol sulfate 90 mcg/actuation HFA aerosol inhaler 2 inh inhalation Q4H PRN (Reason: shortness of breath or wheezing) Qty: 6.7 0RF Rx Instructions: Please provide patient with a spacer No Action PNV Tabs 20-1 20 mg iron- 1 mg tablet 1 tab PO DAILY hydroxyzine HCl 50 mg tablet 50 mg PO 1XD PRN (Reason: Anxiety) Discharge Orders: Discharge ED (Routine); Ordered 03/21/24 Ordered By: Maura Butler Discharge Diet: Usual diet Discharge Activity: Increase activity as tolerated Patient Instructions: Pneumonia (ED) Activity Restrictions/Additional Instructions: Thank you for choosing [facility] for your healthcare needs today. Please realize this is an emergency room and that we are providing you with a medical screening exam and this may not be complete and all inclusive of all the testing and or work up that you may need to determine your ailment or severity of your illness. You have been screened and evaluated and felt safe for discharge. Health conditions do change or evolve sometimes and as such it is important that you follow up with your Primary Doctor to be re checked, 3-5 days is a general good time frame for follow up. You are always welcome to return to the ED for re assessment if your symptoms are worsening or you have new concerns Coding Level of Care Code ED Puncher And Fastener for [facility] Plaza
[2024-03-21 10:48] LABS: Basophils % 0.1 %; Eosinophils # 0.2 10^3/uL (0.0-0.8); Eosinophils % 2.3 %; Hematocrit 39.8 % (36-47); Lymphocytes # 1.5 10^3/uL (1.5-6.5); Lymphocytes % 21.9 %; Mean Corpuscular HGB Conc 32.9 g/dL (30-55); Mean Corpuscular Hemoglobin 29.6 pg (27-33); Mean Corpuscular Volume 89.8 fl (85-98); Mean Platelet Volume 9.5 fL (7.4-10.4); Monocytes # 0.5 10^3/uL (0.2-0.9); Neutrophils % 68.4 %; Nucleated Red Blood Cells % 0 %; Platelet Count 241 10^3/cmm (157-399); Red Blood Count 4.43 10^6/uL (3.85-5.65); Red Cell Distribution Width 12.9 % (12.1-15.1); White Blood Count 6.88 10^3/uL (4.5-13.0)
[2024-03-21] MEDS: albuterol 2.5 mg/3 mL Neb INHALATION (10:57)
[2024-03-21 11:05] LABS: Lactic Sepsis W/Reflex 2.2 mmol/L (0.5-2.2)
[2024-03-21 11:07] LABS: Alanine Aminotransferase 56 U/L (0-33); Albumin Level 3.9 g/dL (3.5-5.2); Alkaline Phosphatase 103 U/L (35-105); Anion Gap 15.6 (5-19); Aspartate Amino Transferase 31 U/L (0-32); Blood Urea Nitrogen 11 mg/dL (6-20); Calcium 8.9 mg/dL (8.5-10.5); Carbon Dioxide 22 mmol/L (22-29); Chloride 103 mmol/L (98-107); Globulin 3.1 g/dL (1.3-4.6); Glomerular Filtration Rate 70.7 mL/min (90-130); Glucose 117 mg/dL (65-115); Osmolality Calculated 284 mOsm/kg (285-295); Potassium 3.6 mmol/L (3.5-5.1); Sodium 137 mmol/L (136-145); Total Bilirubin 0.4 mg/dL (0.15-1.2)
[2024-03-21 11:09] LABS: Creatinine Clr Calc Pharmacy 89.5214
[2024-03-21] MEDS: levofloxacin-dextrose 5 % 750 MG/150 ML PREMIX 100 MG IV (11:10)
[2024-03-21] MEDS: methylPREDNISolone sod succ 125 mg/2 mL INJ IVP (11:12)
[2024-03-21] MEDS: guaiFENesin-codeine UDC 10 mL PO (11:13)
[2024-03-21 11:14] LABS: Procalcitonin 0.23 ng/mL (0-0.5)
[2024-03-21] MEDS: sodium chloride 0.9% 1,000 ML 999 ML IV (11:14)
[2024-03-21 11:28] LABS: Covid PCR NEGATIVE (Negative); Influenza A NEGATIVE (Negative); Influenza B NEGATIVE (Negative); Respiratory Syncytial Virus Ce NEGATIVE (Negative)
[2024-03-21 12:33] LABS: Reflex Lactate Order REFLEX LACTIC ORDERD
== END 2024-03-21 13:15 | disposition home or self-care (01) ==
PROVIDERS: Emergency Provider Emergency Medicine
DX: J15.9 Unspecified bacterial pneumonia (principal); Z11.52 Encounter for screening for COVID-19; R00.0 Tachycardia, unspecified
CPT/HCPCS: 0241U; 36415; 71045; 80053; 83605; 84145; 85025; 86140; 93005; 94640; 96365; 96366; 96375; 99285; J1956; J2919; J7030; J7613

== ENCOUNTER 2024-04-20 21:50 | Emergency (ER) | payer MEDICAID, SELFPAY ==
[2024-04-20 22:02] VITALS: BP 145/87; PULSE 85; RESP 17; TEMP 36.7; O2SAT 97; BMI 32.8
[2024-04-20 22:15] VITALS: BP 142/81; PULSE 97; RESP 24; O2SAT 98
--- NOTE | 2024-04-20 22:17 | ECG_ITS ---
[facility] 2024-[facility]20 Pat Name: Annalisa Kruse Department: Room: Gender: Female [employer] Manager: : 2005 Requested By: Bhargav Valdez Order Number: [id number] Patel MD: NELSON PUCKETT Measurements Intervals [place] Rate: 83 P: 37 [place]: 140 QRS: 45 QRSD: 79 T: 39 QT: 367 QTc: 432 Interpretive Statements SINUS RHYTHM WITH SINUS ARRHYTHMIA Compared to ECG 03/21/2024 10:29:30 Sinus tachycardia no longer present T-wave abnormality no longer present Electronically Signed On 04-23-2024 00:36:05 FLOOR REFINISHER by NELSON PUCKETT [email or web address]
--- NOTE | 2024-04-20 22:18 | XRR_ITS ---
PROCEDURE INFORMATION: Exam: XR Chest Exam date and time: 04/20/2024 10:20 PM Age: 18 years old Clinical indication: Pain; Chest pressure; Additional info: Epigastric/cp TECHNIQUE: Imaging protocol: Radiologic exam of the chest. Views: 1 view. COMPARISON: CR (CHEST, ) 03/21/2024 10:40 AM FINDINGS: Lungs: Unremarkable. No consolidation. Pleural spaces: Unremarkable. No pleural effusion. No pneumothorax. Heart/Mediastinum: Unremarkable. No cardiomegaly. Bones/joints: Unremarkable. XR/XR chest 1V portable [id number] IMPRESSION: No acute findings.
--- NOTE | 2024-04-20 22:23 | ED_ITS ---
HPI - Abdominal Pain 2 General: Chief Complaint: Abdominal Pain Stated Complaint: upper abd pain, chest pain, n/v Time Seen by Provider: 04/20/24 22:11 Source: patient Mode of arrival: ambulatory Limitations: no limitations History of Present Illness: Patient is a 18-year-old female who presents to the emergency department complaining of epigastric abdominal pain beginning earlier today. Also is reporting 2 episodes of vomiting, her last episode occurred prior to arrival and she states there was blood in it. Denies any pertinent past medical history. She states the pain seems to radiate up towards her chest, does not related to eating. No other alleviating or exacerbating factors noted. No changes in bowel habits, no urinary symptoms, no fever or chills, and no other symptoms to report. Her vitals at this time are stable. She states that the pain is present at this time, feels like a burning. MD elicited complaint: abdominal pain Pertinent past history: none Onset (ago): hour(s) Pain Consistency: constant Location: Epigastric Severity: moderate Quality: burning Radiation: chest Exacerbating factors: nothing Relieving factors: nothing Associated Symptoms: Reports hematemesis and vomiting; Denies bloating, change in stool character, chills, constipation, diarrhea, dysuria, fever(s), hematochezia and nausea Related Data Home Medications Medication Instructions Recorded Confirmed vitamins no.163-iron 1 tab PO DAILY 05/30/23 09/15/23 bis-gly 20 mg-folate no.10 1 mg tablet (PNV Tabs 20-1) hydroxyzine HCl 50 mg tablet 50 mg PO 1XD PRN Anxiety 09/16/23 09/16/23 Previous Rx's Medication Instructions Recorded albuterol sulfate 90 mcg/actuation 2 inh inhalation Q4H PRN shortness 03/21/24 aerosol inhaler of breath or wheezing #6.7 grams benzonatate 200 mg capsule 200 mg PO TID PRN cough #30 caps 03/21/24 omeprazole 10 mg capsule,delayed 10 mg PO DAILY #14 caps 04/20/24 release sucralfate 1 gram tablet (Carafate) 1 g PO BID #30 tabs 04/20/24 Allergies Allergy/AdvReac Type Severity Reaction Status Date / Time No Known Allergies Allergy Verified 04/20/24 22:09 Review of Systems 2 General: Reports: 10 or more systems reviewed and unremarkable except in HPI and below Const: Denies: fever(s), chills, change in appetite, change in weight or diaphoresis ENMT: Denies: throat pain or hoarseness Card: Reports: chest pain; Denies: palpitations or lightheadedness Resp: Denies: dyspnea, productive cough or wheezing GI: Reports: abdominal pain, vomiting and hematemesis; Denies: nausea, diarrhea, constipation, bloating, change in stool character or hematochezia : Denies: flank pain, difficulty voiding, dysuria, urinary frequency or urinary urgency Musc: Denies: neck pain or back pain Skin/Breast: Denies: rash or new lesions Neuro: Denies: headache(s) or dizziness PFSH ED 2 PFSH: Medical History IUD Ovarian cyst during in first trimester Surgical History No pertinent past surgical history Family History Father No problems noted. Mother Hypertension Social History Smoking and tobacco/nicotine status: never used tobacco/nicotine Alcohol intake: never Substance/Drug Use: never Physical Exam 2 Const: COMMON NORMALS: no acute distress, average body habitus, patient oriented x3, no limitations, healthy appearing, alert and well nourished G ENERAL APPEARANCE: cooperative and comfortable ORIENTATION/CONSCIOUSNESS: Yes awake HENMT: COMMON NORMALS: normocephalic, atraumatic, hearing grossly normal bilaterally, external ears normal, Normal external nose present, Normal nasal mucous membranes and turbinates present and moist oral mucous membranes HEAD & SCALP: normocephalic and atraumatic NOSE: Normal external nose present and Normal nasal mucous membranes and turbinates present EXTERNAL EAR: Yes external ears normal Eye: COMMON NORMALS: Equal, round and reactive pupils present, EOMs intact bilaterally, conjunctivae normal and normal visual bauer by confrontation C ONJUNCTIVA: Yes conjunctivae normal PUPIL: Yes Equal, round and reactive pupils present Neck/C-Spine: COMMON NORMALS: full ROM, supple, no meningeal signs and no JVD Resp: COMMON NORMALS: normal respiratory effort, No retractions, No use of accessory muscles and clear to auscultation bilaterally AUSCULTATION: clear to auscultation bilaterally, no crackles, no rales, no rhonchi and no wheezes Cardio: COMMON NORMALS: no JVD, regular rate, regular rhythm, S1 normal heart sound present, S2 normal heart sound present, No gallops present (Cardio), No clicks present (Cardio), No murmurs present (Cardio), No rub (Cardio) and Peripheral pulses 2+ throughout RATE: regular rate RHYTHM: regular rhythm HEART SOUNDS: S1 normal heart sound present and S2 normal heart sound present PERIPHERAL PULSES: Peripheral pulses 2+ throughout GI: COMMON NORMALS: Normal to inspection, nondistended, normoactive bowel sounds present, Soft to palpation, No hepatosplenomegaly present and no masses AUSCULTATION: Yes normoactive bowel sounds PALPATION: Yes Soft to palpation, Yes Tenderness to palpation present (GI) (Very mild upper quadrant tenderness to light palpation), No Guarding due to palpation present (GI), No Rigid due to palpation and Yes No hepatosplenomegaly present RECTAL EXAM: deferred Extremity: COMMON NORMALS: normal to inspection and full ROM Neuro: COMMON NORMALS: patient oriented x3, moves all extremities, no focal motor deficits and no sensory deficits noted SENSORIUM/ORIENTATION: Yes alert MENINGEAL SIGNS: Yes no meningeal signs Psych: COMMON NORMALS: mental status grossly normal, cooperative and speech normal SPEECH: Yes normal speech Skin: COMMON NORMALS: no rashes or lesions noted GENERAL SKIN EXAM: no rashes or lesions noted Course 2 Vital Signs: Vital signs: Vital Signs Temperature 98.0 F 04/20/24 22:02 Pulse Rate 72 04/20/24 23:40 Respiratory Rate 15 04/20/24 23:09 Blood Pressure 120/79 04/20/24 23:40 Pulse Oximetry 99 04/20/24 23:40 Oxygen Delivery Me thod Room Air 04/20/24 23:09 MDM - Abdominal Pain Medical Decision Making Patient presented with onset of epigastric pain radiating to the chest. Her lab work and imaging here in the emergency department were normal, this diagnosis favors an acid reflux. Notes minimal improvement after GI cocktail we will treat conservatively, and did encourage her to follow-up with primary care for further outpatient evaluation. Also was given return precautions, she agrees with this plan at this time. She also elects to go without abdominal CT scan, this was done with shared decision making as I do not think it would show any abnormalities. Also discussed conservative treatments in terms of acid reflux and avoiding potential exacerbating factors, all other questions answered at this time. Lab Data 04/20/24 22:30 04/20/24 22:30 Labs/Radiology: Radiology Impressions Chest X-Ray 04/20/24 22:18 IMPRESSION: No acute findings. Laboratory Results WBC 7.24 10^3/uL (4.5-13.0) 04/20/24 22:30 RBC 4.74 10^6/uL (3.85-5.65) 04/20/24 22:30 Hgb 14.00 g/dL (12.4-14.8) 04/20/24 22:30 Hct 41.7 % (36-47) 04/20/24 22:30 MCV 88.0 fl (85-98) 04/20/24 22:30 MCH 29.5 pg (27-33) 04/20/24 22:30 MCHC 33.6 g/dL (30-55) 04/20/24 22:30 RDW 12.9 % (12.1-15.1) 04/20/24 22:30 Plt Count 293 10^3/cmm (157-399) 04/20/24 22:30 MPV 9.1 fL (7.4-10.4) 04/20/24 22:30 Neut % (Auto) 49.6 % 04/20/24 22:30 Lymph % (Auto) 37.4 % 04/20/24 22:30 [place] % (Auto) 9.7 % 04/20/24 22:30 Eos % (Auto) 2.5 % 04/20/24 22:30 Baso % (Auto) 0.4 % 04/20/24 22:30 Neut # (Auto) 3.59 10^3/uL (1.8-8.0) 04/20/24 22:30 Lymph # (Auto) 2.7 10^3/uL (1.5-6.5) 04/20/24 22:30 [place] # (Auto) 0.7 10^3/uL (0.2-0.9) 04/20/24 22:30 Eos # (Auto) 0.2 10^3/uL (0.0-0.8) 04/20/24 22:30 Baso # (Auto) 0.0 10^3/uL (0.0-0.1) 04/20/24 22:30 Nucleated RBC % (auto) 0 % 04/20/24 22:30 Nucleated RBCs # 0.0 /100WBC 04/20/24 22:30 Sodium 141 mmol/L (136-145) 04/20/24 22:30 Potassium 4.0 mmol/L (3.5-5.1) 04/20/24 22:30 Chloride 105 mmol/L (98-107) 04/20/24 22:30 Carbon Dioxide 24 mmol/L (22-29) 04/20/24 22:30 Anion Gap 16.0 (5-19) 04/20/24 22:30 BUN 6 mg/dL (6-20) 04/20/24 22:30 Creatinine 0.9 mg/dL (0.5-0.9) 04/20/24 22:30 GFR Calculation 79.8 mL/min (90-130) L 04/20/24 22:30 Glucose 86 mg/dL (65-115) 04/20/24 22:30 Calculated Osmolality 289 mOsm/kg (285-295) 04/20/24 22:30 Calcium 8.6 mg/dL (8.5-10.5) 04/20/24 22:30 Total Bilirubin 0.2 mg/dL (0.15-1.2) 04/20/24 22:30 AST 29 U/L (0-32) 04/20/24 22:30 ALT 60 U/L (0-33) H 04/20/24 22:30 Alkaline Phosphatase 90 U/L (35-105) 04/20/24 22:30 Total Protein 6.7 g/dL (6.6-8.7) 04/20/24 22:30 Albumin 4.2 g/dL (3.5-5.2) 04/20/24 22:30 Globulin 2.5 g/dL (1.3-4.6) 04/20/24 22:30 Lipase 22 U/L (13-60) 04/20/24 22:30 HCG, Qual Negative (Negative) 11/05/24 22:30 Urine Color Yellow (Yellow) 04/20/24 22:30 Urine Appearance Cloudy (CLEAR) A 04/20/24 22:30 Urine pH 6.0 (5-7) 04/20/24 22:30 Ur Specific [place] 1.024 (1.005-1.030) 04/20/24 22:30 Urine Protein Trace (Negative) A 04/20/24 22:30 Urine Glucose (UA) Negative (Normal) 04/20/24 22: Urine Ketones Negative (Negative) 04/20/24 22: Urine Blood 1+ (Negative) A 04/20/24 22:30 Urine Nitrate Negative (Negative) 04/20/24: Urine Bilirubin Negative (Negative) 04/20/24 22: Urine Urobilinogen 1.0 mg/dL (Negative) 04/20/24 22:30 Ur Leukocyte Esterase Trace (Negative) A 04/20/24 22:30 Urine RBC 0-2 /hpf (0-2) 04/20/24 22:30 Urine WBC 11-20 /hpf (0-5) H 04/20/24 22:30 Ur Squamous Epith Cells 11-20 /hpf (0-5) 04/20/24 22:30 Amorphous Sediment Not Reportable 04/20/24: Urine Bacteria 4+ /hpf (NONE) H 04/20/24 22:30 Hyaline Casts 2.87 /lpf 04/20/24 22:30 All radiology interpretation(s) finalized by discharge Discharge Plan Discharge Patient Disposition: Home Clinical Impression: GERD (gastroesophageal reflux disease) Qualifiers: Esophagitis presence: esophagitis presence not specified Qualified Code(s): K 21.9 - Gastro-esophageal reflux disease without esophagitis Condition: Stable Prescriptions: New sucralfate [Carafate] 1 gram tablet 1 g PO BID Qty: 30 0RF omeprazole 10 mg capsule,delayed release(DR/EC) 10 mg PO DAILY Qty: 14 0RF No Action PNV Tabs 20-1 20 mg iron- 1 mg tablet 1 tab PO DAILY hydroxyzine HCl 50 mg tablet 50 mg PO 1XD PRN (Reason: Anxiety) benzonatate 200 mg capsule 200 mg PO TID PRN (Reason: cough) Qty: 30 0RF albuterol sulfate 90 mcg/actuation HFA aerosol inhaler 2 inh inhalation Q4H PRN (Reason: shortness of breath or wheezing) Qty: 6.7 0RF Rx Instructions: Please provide patient with a spacer Discharge Orders: Discharge ED (Routine); Ordered 04/20/24 Ordered By: Bhargav Mccollum Referrals: Kailyn Lainez MD [Primary Care Provider] - Discharge Diet: As Directed Patient Instructions: GERD (Gastroesophageal Reflux Disease) (ED) Activity Restrictions/Additional Instructions: Your labs, EKG, and x-ray today were normal. Take medications as prescribed. Follow-up with primary care. Avoid lying flat 2 to 3 hours after eating. Avoid any foods that may potentially make your pain worse. If you have any recurrence of the pain or the pain worsens or persists, please return to the emergency department. Coding Level of Care Code ED Food Server for [facility]
[2024-04-20 22:34] LABS: Basophils % 0.4 %; Eosinophils # 0.2 10^3/uL (0.0-0.8); Eosinophils % 2.5 %; Hematocrit 41.7 % (36-47); Lymphocytes # 2.7 10^3/uL (1.5-6.5); Lymphocytes % 37.4 %; Mean Corpuscular HGB Conc 33.6 g/dL (30-55); Mean Corpuscular Hemoglobin 29.5 pg (27-33); Mean Platelet Volume 9.1 fL (7.4-10.4); Monocytes # 0.7 10^3/uL (0.2-0.9); Monocytes % 9.7 %; Neutrophils # 3.59 10^3/uL (1.8-8.0); Neutrophils % 49.6 %; Nucleated Red Blood Cells % 0 %; Platelet Count 293 10^3/cmm (157-399); Red Blood Count 4.74 10^6/uL (3.85-5.65); Red Cell Distribution Width 12.9 % (12.1-15.1); White Blood Count 7.24 10^3/uL (4.5-13.0)
[2024-04-20] MEDS: lidocaine 2% viscous 15 ML, aluminum-mag hydrox-simethicon 30 ML, sucralfate oral liq 1 GM PO (22:39)
[2024-04-20 22:44] VITALS: BP 124/88; PULSE 62; RESP 19; O2SAT 98
[2024-04-20 22:44] LABS: HCG, Serum Qual Negative (Negative)
[2024-04-20 22:45] LABS: Bilirubin Urine Negative (Negative); Blood Urine 1+ (Negative); Glucose Urine UA Negative (Normal); Ketones Urine Negative (Negative); Leukocyte Esterase Urine Trace (Negative); Nitrate Urine Negative (Negative); Protein Urine Trace (Negative); Specific Gravity, Urine 1.024 (1.005-1.030); Urine Appearance Cloudy (CLEAR); Urine Color Yellow (Yellow)
[2024-04-20 22:50] LABS: Add Urine Microscopic? YES; Alanine Aminotransferase 60 U/L (0-33); Albumin Level 4.2 g/dL (3.5-5.2); Alkaline Phosphatase 90 U/L (35-105); Aspartate Amino Transferase 29 U/L (0-32); Bacteria Urine 4+ /hpf; Blood Urea Nitrogen 6 mg/dL (6-20); Calcium 8.6 mg/dL (8.5-10.5); Carbon Dioxide 24 mmol/L (22-29); Chloride 105 mmol/L (98-107); Creatinine Clr Calc Pharmacy 102.3243; Globulin 2.5 g/dL (1.3-4.6); Glomerular Filtration Rate 79.8 mL/min (90-130); Glucose 86 mg/dL (65-115); Hyaline Casts Urine 2.87 /lpf; Lipase 22 U/L (13-60); Osmolality Calculated 289 mOsm/kg (285-295); RBC Urine 0-2 /hpf (0-2); Sodium 141 mmol/L (136-145); Total Bilirubin 0.2 mg/dL (0.15-1.2); Total Protein 6.7 g/dL (6.6-8.7)
[2024-04-20 23:05] LABS: Add Urine Culture? No; UA Slide Review UA Slide Review Perf
[2024-04-20 23:09] VITALS: BP 127/85; PULSE 71; RESP 15; O2SAT 98
[2024-04-20 23:40] VITALS: BP 120/79; PULSE 72; O2SAT 99
== END 2024-04-20 23:41 | disposition home or self-care (01) ==
PROVIDERS: Emergency Provider Physician Assistant; PCP Family Medicine
DX: K21.9 Gastro-esophageal reflux disease without esophagitis (principal)
CPT/HCPCS: 71045; 80053; 81001; 83690; 84703; 85025; 93005; 99285

== ENCOUNTER 2024-07-18 02:27 | Emergency (ER) | payer MEDICAID, SELFPAY ==
[2024-07-18 02:33] VITALS: BP 150/80; PULSE 93; RESP 18; TEMP 36.8; O2SAT 96
--- NOTE | 2024-07-18 04:12 | XRR_ITS ---
PROCEDURE INFORMATION: Exam: XR Chest Exam date and time: 07/18/2024 4:26 AM Age: 18 years old Clinical indication: Cough and shortness of breath; Cough with SOB TECHNIQUE: Imaging protocol: Radiologic exam of the chest. Views: 1 view. COMPARISON: CR XR chest 1V portable [id number] 04/20/2024 10:20 PM FINDINGS: Lungs: Unremarkable. No consolidation. Pleural spaces: Unremarkable. No pleural effusion. No pneumothorax. Heart/Mediastinum: Unremarkable. No cardiomegaly. Bones/joints: Unremarkable. XR/XR chest 1V portable [id number] IMPRESSION: No acute findings.
--- NOTE | 2024-07-18 04:59 | W.ED.URI ---
HPI - URI/Sore Throat General: Chief Complaint: Upper Respiratory Infection Stated Complaint: sharp pain under breast cough up blood Time Seen by Provider: 07/18/24 04:32 History of Present Illness: 18-year-old female who says she has been coughing for a month on and off. She developed sharp chest discomfort, worse with cough. She states that she coughed up a small brown no blood earlier this morning which worried her, so she came to the emergency room. No fever. No other significant sputum production. No sick contacts. She is not overly short of breath. Related Data Home Medications Medication Instructions Recorded Confirmed vitamins no.163-iron 1 tab PO DAILY 05/30/23 09/15/23 bis-gly 20 mg-folate no.10 1 mg tablet (PNV Tabs 20-1) hydroxyzine HCl 50 mg tablet 50 mg PO 1XD PRN Anxiety 09/16/23 09/16/23 Previous Rx's Medication Instructions Recorded benzonatate 200 mg capsule 200 mg PO TID PRN cough #30 caps 03/21/24 omeprazole 10 mg capsule,delayed 10 mg PO DAILY #14 caps 04/20/24 release sucralfate 1 gram tablet (Carafate) 1 g PO BID #30 tabs 04/20/24 albuterol sulfate 90 mcg/actuation 2 inh inhalation Q4H PRN shortness 07/18/24 aerosol inhaler of breath or wheezing #6.7 grams doxycycline hyclate 100 mg tablet 100 mg PO BID 7 days #14 tabs 07/18/24 methylprednisolone 4 mg tablets in See Rx Instructions PO .COMPLEX 07/18/24 a dose pack (Medrol (Narciso)) #21 ea Allergies Allergy/AdvReac Type Severity Reaction Status Date / Time No Known Allergies Allergy Verified 04/20/24 22:09 [facility] ED [facility]: Medical History IUD Ovarian cyst during in first trimester Surgical History No pertinent past surgical history Family History Father No problems noted. Mother Hypertension Social History Smoking and tobacco/nicotine status: never used tobacco/nicotine Alcohol intake: never Substance/Drug Use: never Physical Exam Const: COMMON NORMALS: no acute distress GENERAL APPEARANCE: cooperative; not ill appearing and not frail appearing HENMT: COMMON NORMALS: normocephalic, atraumatic and Normal external nose present HEAD & SCALP: normocephalic and atraumatic FACE & SINUS: normal facial exam and face symmetric NOSE: Normal external nose present Eye: COMMON NORMALS: Equal, round and reactive pupils present and EOMs intact bilaterally PUPIL: Yes Equal, round and reactive pupils present Neck/C-Spine: GENERAL: Yes trachea midline Chest: CHEST: Yes Symmetrical chest wall rise and Yes tenderness (Anterior) Resp: COMMON NORMALS: normal respiratory effort, No retractions, No use of accessory muscles and clear to auscultation bilaterally AUSCULTATION: clear to auscultation bilaterally Cardio: COMMON NORMALS: regular rate and regular rhythm RATE: regular rate RHYTHM: regular rhythm GI: COMMON NORMALS: Normal to inspection, nondistended, normoactive bowel sounds present Extremity: COMMON NORMALS: no pedal edema Neuro: BERTHA COMA SCALE: document GCS findings Bertha coma scale eye opening: Spontaneous [place] coma scale verbal response: Orientated Bertha coma scale motor response: Obey commands Bertha coma scale total score: 15 SENSORY EXAM: Yes extremities (intact) Psych: COMMON NORMALS: speech normal SPEECH: Yes normal speech Skin: COMMON NORMALS: no rashes or lesions noted GENERAL SKIN EXAM: no rashes or lesions noted Course Vital Signs: Vital signs: Vital Signs Temperature 98.2 F 07/18/24 02:33 Pulse Rate 92 07/18/24 06:42 Respiratory Rate 16 07/18/24 06:42 Blood Pressure 124/80 07/18/24 06:42 Pulse Oximetry 97 07/18/24 06:42 MDM - URI/Sore Throat Medical Decision Making 18-year-old female with persistent cough, and pleuritic type chest pain. Her chest x-ray is negative. Swabs for COVID flu and RSV are negative. Her EKG is normal. She will be discharged. Will place her on a tapering dose of steroid, doxycycline. Outpatient follow-up. Return for worsening symptoms. She is neither hypoxic nor tachycardic. Lab Data Radiology Impressions Chest X-Ray 07/18/24 04:12 IMPRESSION: No acute findings. Laboratory Results Coronavirus (PCR) Negative (Negative) 07/18/24 04:30 Influenza A (PCR) Negative (Negative) 07/18/24 04:30 Influenza Type B (PCR) Negative (Negative) 07/18/24 04:30 RSV (PCR) Negative (Negative) 07/18/24 04:30 All radiology interpretation(s) finalized by discharge Discharge Plan Discharge Patient Disposition: Home Clinical Impression: Bronchitis Condition: Stable Prescriptions: New methylprednisolone [Medrol (Narciso)] 4 mg tablets,dose pack See Rx Instructions .ROUTE .COMPLEX Qty: 21 0RF Rx Instructions: orally per package directions doxycycline hyclate 100 mg tablet 100 mg PO BID 7 Days Qty: 14 0RF Continued albuterol sulfate 90 mcg/actuation HFA aerosol inhaler 2 inh inhalation Q4H PRN (Reason: shortness of breath or wheezing) Qty: 6.7 0RF Rx Instructions: Please provide patient with a spacer No Action PNV Tabs 20-1 20 mg iron- 1 mg tablet 1 tab PO DAILY sucralfate [Carafate] 1 gram tablet 1 g PO BID Qty: 30 0RF omeprazole 10 mg capsule,delayed release(DR/EC) 10 mg PO DAILY Qty: 14 0RF hydroxyzine HCl 50 mg tablet 50 mg PO 1XD PRN (Reason: Anxiety) benzonatate 200 mg capsule 200 mg PO TID PRN (Reason: cough) Qty: 30 0RF Discharge Orders: Discharge ED (Routine); Ordered 07/18/24 Ordered By: Christopher Pham Referrals: Kailyn Lainez MD [Primary Care Provider] - 4-7 days Patient Instructions: Acute Bronchitis (ED), Opioid Safety, Pain Management Activity Restrictions/Additional Instructions: Medication as directed. Use the albuterol every 4 hours while awake for the first 48 hours whether you feel you needed or not. You may use it as you needed after that. Return for worsening pain despite treatment, fever despite 3-4 doses of antibiotics, worsening shortness of breath, significant amounts of blood in the sputum, any other concerning symptoms. Coding Level of Care Code ED [employer] [facility] [employer] [employer]
[2024-07-18 05:23] LABS: Covid PCR NEGATIVE (Negative); Influenza A NEGATIVE (Negative); Influenza B NEGATIVE (Negative); Respiratory Syncytial Virus Ce NEGATIVE (Negative)
[2024-07-18] MEDS: lidocaine 2% viscous 15 ML, aluminum-mag hydrox-simethicon 30 ML, sucralfate oral liq 1 GM PO (05:34)
[2024-07-18] MEDS: ketorolac 30 mg/mL INJ IM (05:35)
--- NOTE | 2024-07-18 05:53 | ECG_ITS ---
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
--- NOTE | 2024-07-18 06:41 | PC.NURSE ---
Pt sent home with 1x tab Oxycodone 5/325 per Physician order.
[2024-07-18 06:42] VITALS: BP 124/80; PULSE 92; RESP 16; O2SAT 97
== END 2024-07-18 06:43 | disposition home or self-care (01) ==
PROVIDERS: Emergency Provider Emergency Medicine; PCP Family Medicine
DX: J40 Bronchitis, not specified as acute or chronic (principal); Z11.52 Encounter for screening for COVID-19
CPT/HCPCS: 71045; 87637; 93005; 96372; 99284; J1885

== ENCOUNTER 2024-10-07 23:40 | Emergency (ER) | payer SELFPAY ==
[2024-10-07 23:49] VITALS: BP 133/85; PULSE 88; RESP 16; TEMP 36.9; O2SAT 97; BMI 30.9
--- NOTE | 2024-10-08 00:23 | ED.C_ITS ---
HPI - Psych General: Chief Complaint: Psychiatric Symptoms Stated Complaint: SI Time Seen by Provider: 10/07/24 23:57 Source: patient History of Present Illness: Patient is a very pleasant 19-year-old female who presents to the ER due to concern for suicidal comments that she had made earlier this evening. She states that she and her fianc? had gotten into a verbal altercation. She states she did not want to argue and so decided to remove herself from the situation. She got into her vehicle and drove to the gas station. She was subsequently on the phone with her fianc? and stated that she was having some suicidal thoughts at which point he called law enforcement and they brought her to the hospital. She states that she was just emotionally upset and had no intentions of acting upon the suicidal thoughts. She does not have any plan for suicide and denies feeling suicidal at all currently. She has no desire for inpatient psychiatric placement. She states that she has a 1-year-old at home and would not kill herself and is just had thoughts of it from time to time. She does have a mental health care provider that she is scheduled to see on Friday. Duration: resolved prior to arrival Related Data Previous Rx's ?Medication ?Instructions ?Recorded etonogestrel 0.12 mg-ethinyl 1 vag ring vaginal .3 wee ks then 09/30/24 estradiol 0.015 mg/24 hr vaginal remove #3 ea ring (NuvaRing) tirzepatide (weight loss) 2.5 2.5 mg (0.5 mL) SUBCUT . week #2 mL 09/30/24 mg/0.5 mL subcutaneous pen injector (Zepbound) Allergies Allergy/AdvReac Type Severity Reaction Status Date / Time No Known Allergies Allergy Verified 09/30/24 09:32 [facility] ED PFS: Medical History (Updated 10/08/24 @ 00:27 by Ayush English MD) Encounter for surveillance of vaginal ring hormonal contraceptive device Ovarian cyst during in first trimester Surgical History No pertinent past surgical history Family History Father No problems noted. Mother Hypertension Social History Smoking and tobacco/nicotine status: never used tobacco/nicotine Alcohol intake: never Substance/Drug Use: never Adopted: No Caregiver/support person: No Lives independently: Yes Household members: significant other and other Housing: House Marital status: Single Number of children: 1 Highest education level completed: High School Graduate service: No Current occupational status: unemployed Pets and animals: Yes Pets & animals: dog(s) Female Reproductive History: Para: 1 Physical Exam Const: COMMON NORMALS: no acute distress, average body habitus, alert and well nourished GENERAL APPEARANCE: cooperative ORIENTATION/CONSCIOUSNESS: Yes awake OTHER: Nontoxic 19-year-old female in no acute distress HENMT: COMMON NORMALS: normocephalic and atraumatic HEAD & SCALP: normocephalic and atraumatic Eye: COMMON NORMALS: conjunctivae normal CONJUNCTIVA: Yes conjunctivae normal Neck/C-Spine: GENERAL: Yes normal visual inspection Resp: COMMON NORMALS: normal respiratory effort, No retractions and No use of accessory muscles Cardio: COMMON NORMALS: Peripheral pulses 2+ throughout PERIPHERAL PULSES: Peripheral pulses 2+ throughout Extremity: COMMON NORMALS: full ROM and no pedal edema Neuro: COMMON NORMALS: no focal motor deficits SENSORIUM/ORIENTATION: Yes alert Psych: COMMON NORMALS: mental status grossly normal and cooperative OTHER: Patient has mildly depressed mood however is awake alert and appropriate. She answers all questions appropriately, she occasionally laughs and smiles throughout exam. She denies any suicidal ideation or plans of self-harm. Skin: COMMON NORMALS: no rashes or lesions noted GENERAL SKIN EXAM: no rashes or lesions noted Course Vital Signs: Vital signs: Vital Signs Temperature 98.5 F 10/07/24 23:49 Pulse Rate 88 10/07/24 23:49 Respiratory Rate 16 10/07/24 23:49 Blood Pressure 133/85 10/07/24 23:49 Pulse Oximetry 97 10/07/24 23:49 MDM - Psych Medical Decision Making Patient is a well-appearing 19-year-old female who is brought to the ER after making suicidal comment earlier tonight. She denies any plan for suicide and states she would not actually kill herself. She has a 1-year-old at home who she cares too much about and has just had occasional thoughts from time to time. She states there are firearms at home but they are all locked up and she does not have keys or access to them. She has an appointment with her mental health care provider on Friday. She has no desire for inpatient psychiatric placement and desires discharge home. I do not feel there is any reason to hold patient against her will and is reasonable for her to be discharged and follow-up with her provider. She was given strict return precautions. She states she feels safe at home and her fianc? will pick her up and take her home. No radiology studies performed this visit Discharge Plan Discharge Patient Disposition: Home Clinical Impression: Suicidal ideation Condition: Stable Prescriptions: No Action Zepbound 2.5 mg/0.5 mL pen injector 2.5 mg SUBCUT .week Qty: 2 0RF etonogestrel-ethinyl estradiol [NuvaRing] 0.12-0.015 mg/24 hr ring 1 vag ring vaginal .3 weeks then remove Qty: 3 5RF Discharge Orders: Discharge ED (Routine); Ordered 10/08/24 Ordered By: Ayush English Referrals: Jossue Chou, [employer] [Primary Care Provider] - Discharge Diet: Usual diet Discharge Activity: Resume usual activity Patient Instructions: Depression (ED), Suicide Prevention (ED) Activity Restrictions/Additional Instructions: Follow-up with your mental health care provider on Friday as scheduled. Return to the ER if you develop any recurrent thoughts of self-harm or suicide or having any plans of self-harm or have any other concerns. 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
== END 2024-10-08 00:39 | disposition home or self-care (01) ==
PROVIDERS: Emergency Provider Student in an Organized Health Care Education/Training Program; PCP Nurse Practitioner
DX: R45.851 Suicidal ideations (principal)
CPT/HCPCS: 99283